=== PATIENT | female | born 1940 | race Caucasian/White ===

== ENCOUNTER 2016-11-15 08:14 | Outpatient (CLI) | payer MEDICARE, MEDICAID ==
[~2016-11-15] VITALS: Ht 162.6 cm; Wt 101.0 kg
--- NOTE | ~2016-11-15 | OR ---
PATIENT'S NAME: GIA GARCIA [facility] AGE: 76 Y [address] ROOM: [place] [id number] [place] [facility] [place]: 11/15/2016 OR/Procedure Report DISCHARGE DATE: 11/16/2016 FAMILY PHYSICIAN: Radha Arauz MD ATTENDING PHYSICIAN: Jose Johansen SURGEON: Jose Johansen MD PRINTED CIRCUIT BOARD PANELS PLATER: DATE OF PROCEDURE: 11/15/2016 PROCEDURE: Single chamber pacemaker implant INDICATION: Chronic atrial fibrillation with manifest of sick sinus syndrome with prolonged pauses PROCEDURE/FINDINGS: Ms. Garcia was brought to the cardiac medical lab tech instructor in the fasting state and prepped draped in the normal manner. Versed and fentanyl were given for conscious sedation. 1% lidocaine was used in the left infraclavicular region for analgesia. Next, an 18 gauge CrowdTangle needle was advanced into the left subclavian vein through which a 0.025 wire was placed. Needle was removed. Proximal end of the wire was attached to the surgical gown with a hemostat. Attention was then turned towards creation of the pacemaker pocket where additional 1% lidocaine was given. Following this #11 blade was used for primary skin incision. Using Bovie cautery as well as blunt dissection, dissection through the subcutaneous layer was carried out until identification of the pectoralis fascia. This was entered into and dissected both cephalad as well as caudally. The previously placed 0.025 wire was brought through the skin into the pacemaker pocket where a 7F sheath was placed onto this. Wire and dilator were removed. Using fluoroscopic guidance, right ventricular lead was placed. This is a [employer], model #7741, serial #[id number]. Thresholds were obtained showing a sensing R wave of 9.6 mV, threshold 0.6 volts at 0.4 milliseconds pulse width, impedance of 820 ohms. Two interrupted sutures of zero of silk were used to anchor the shoulder sleeve into the pectoralis muscle. Following this the lead was then hooked into the pacemaker generator which is a [place] [employer]SSENT[employer], model # L110, serial #[id number]. The generator with the connected lead was then placed into the pacemaker pocket. Overlying subcutaneous layer was closed with 2-0 Vicryl in running fashion. Next, the subcuticular layer was closed with 4.0 Vicryl also in running fashion. Following this, Steri-Strips were applied as well as a pressure dressing and Tegaderm dressing. There were no complications. CONCLUSION: PATIENT'S NAME: GIA GARCIA [facility] AGE: 76 Y [address] ROOM: [place] [address] [place] [facility] [place] DATE: 11/15/2016 OR/Procedure Report DISCHARGE DATE: 11/16/2016 FAMILY PHYSICIAN: Radha Arauz MD ATTENDING PHYSICIAN: Jose Johansen 1. Single chamber pacemaker implantation for sick sinus syndrome in the setting of chronic atrial fibrillation. 2. Patient was instructed not to lift her left arm for the next one week. 3. Patient will be educated on use of the home remote monitoring Performance Indicator system. JOSE JOHANSEN MD DJM/gb /[id number] CC: Printer CARDIOPULMINARY d: 11/19/16 1038 t: 11/23/16 0913, OPERATIVE SUMMARY
[~2016-11-15 08:14] MED LIST: ACIDOPHILUS-PE1 EAC3 PO; ADVAIR 250-501 EACH INH; ARTIFICIAL TEAR15 ML OPHTH; ASPIRIN LO-DOSE81 MG PO; CALCIUM ANTACI320 MG PO; CALCIUM CARBON600 MG PO; CARDIZEM CD (T120 MG PO; COUMADIN ** IA5 MG PO; GLUCOPHAGE500 MG PO; GLUCOTROL5 MG PO; K-TAB 10MEQ10 MEQ PO; LANTUS SOL100 UNIT/1 SUB-Q; LASIX40 MG PO; LOPRESSOR25 MG PO; LOTRIMIN30 GM TOP; LYRICA 75MG CAP75 MG PO; MINTOX SUSPENS355 ML PO; MYCOSTATIN(NYST15 GM TOP; NOVOLOG FL100 UNIT/1 SUB-Q; NOVOLOG100 UNIT/M SUB-Q; PAIN RELIEVER500 M1 PO; PROTONIX40 MG PO; SYNTHROID50 MCG PO; THERAGRAN-M1 TAB PO; VITAMIN D1000 UNIT PO; XARELTO20 MG PO; ZOLOFT50 MG PO
[2016-11-15] MEDS ORDERED: NOVOLOG FL100 UNIT/1 SUB-Q (16:58)
[2016-11-15] MEDS ORDERED: CALCIUM ANTACI400 MG PO (17:13)
--- NOTE | 2016-11-15 20:26 | NUR ---
Significant Event:A/O X 3. Ambulates with SBA, gait belt and wheeled walker. UP to recliner for supper. UP to the bathroom to void. Paced rhythm. O2 > 90% on room air,lungs clear. Tolerating ADA diet and PO fluids. Voids per bathroom with no problems. Reports no pain. ICE to incision site at all times. "bug bite to R) shoulder is hard, red, edges marked. IV ABX in OR. LAST post op vital signs t 2115. Follow up:Home to [facility] tomorrow. Dr plans to be here at 0800 and daughter will be here to pick patient up by 1030.
--- NOTE | 2016-11-16 04:24 | NUR ---
Significant Event: Patient A/Ox3 VSS on RA. Patient sleeps with home CPAP, no oxygen bled in. Pacemaker site to L) subclavian is soft. Dressing is clean dry and intact. Ice pack applied. Patient feels her pain is well controlled. Bug bite to right shoulder has not grown in size but patient states that it itches. Immobilizer sling to L)arm. Follow up: Return to assisted living this morning.
== END 2016-11-16 11:15 | disposition disaster alternative care site (69) ==
LOC: GSDC 08:14 → GPCU 08:14 → GPOC 11:00 → GPCU 13:52 → GSDC 11-16 11:15
PROC: 0JH604Z Insertion of Pacemaker, Single Chamber into Chest Subcutaneous Tissue and Fascia, Open Approach (ICD-10-PCS; principal; 2016-11-15)
PROC: 02HK3JZ Insertion of Pacemaker Lead into Right Ventricle, Percutaneous Approach (ICD-10-PCS; 2016-11-15)
DX: I48.2 Chronic atrial fibrillation (principal); I49.5 Sick sinus syndrome; I25.10 Atherosclerotic heart disease of native coronary artery without angina pectoris; I27.2 Other secondary pulmonary hypertension; I10 Essential (primary) hypertension; E11.9 Type 2 diabetes mellitus without complications; G47.30 Sleep apnea, unspecified; Z90.49 Acquired absence of other specified parts of digestive tract; Z98.49 Cataract extraction status, unspecified eye; Z88.0 Allergy status to penicillin; Z91.040 Latex allergy status; Z91.018 Allergy to other foods; Z79.01 Long term (current) use of anticoagulants; Z98.890 Other specified postprocedural states
CPT/HCPCS: C1786; C1898; J2001; J2250; J3010; J3370; J7030